=== PATIENT | female | born 1970 | race Caucasian/White ===

== ENCOUNTER 2016-08-27 15:12 | Emergency (ER) | payer OTHER ==
--- NOTE | ~2016-08-27 | CR63 ---
[facility] A Service of [facility] & [facility] RADIOLOGY TEXT RESULTS PATIENT: ENRIQUE BALLARD LOCATION: SED : 66 UNIT #: [id number] AGE: [address]: Tony Jones MD SEX: F ORDER DR: [id number] [place] [id number] E MR#: [id number] Acc #: [id number] NAME: ENRIQUE BALLARD : 1970 SEX: F STUDY DATE/TIME: 08/27/2016 15:07 UNIT: SED ROOM: STUDY DESCRIPTION: CR Chest 2 View Attending Physician: Tony Jones M.D. Ordering Physician: Tony Jones M.D. Primary Care Physician: [facility] MEDICAL IMAGING REPORT This report is preliminary unless electronic signature is present. EXAM PA and lateral chest 08/27/2016 HISTORY Left rib pain starting 4 days ago. FINDINGS Heart size is within normal limits. Patient does have background changes of COPD. No pneumothorax or pleural effusion is seen. Patient has some scarring versus atelectasis at the lung bases bilaterally right greater than left. No rib fractures are identified. IMPRESSION Background changes of COPD. Patient is noted to have some bibasilar scarring versus atelectasis. No rib fractures are seen. Dictated by... Kala Allen M.D. THIS IS AN ELECTRONICALLY VERIFIED REPORT Kala Allen M.D. at 08/28/2016 5:27 PM GABY/yoshi TD: 08/27/2016 18:20 JOB #: [id number] MEDICAL IMAGING REPORT
[~2016-08-27 15:12] MED LIST: FLEXERIL10 MG PO; IBUPROFEN800 MG PO; NO MEDICATIONS; SUBOXONE 8 MG-1 EAC1 SL; VICODIN 5/1 TAB 5/50 PO
== END 2016-08-27 16:42 | disposition home or self-care (01) ==
LOC: SED 15:12
DX: S20.212A Contusion of left front wall of thorax, initial encounter (principal); Z90.710 Acquired absence of both cervix and uterus; Z88.5 Allergy status to narcotic agent; X50.1XXA Overexertion from prolonged static or awkward postures, initial encounter; Y92.812 Truck as the place of occurrence of the external cause
CPT/HCPCS: 71020; 99283

== ENCOUNTER 2016-10-12 21:50 | Emergency (ER) | payer OTHER ==
--- NOTE | ~2016-10-12 | CR2 ---
[facility] A Service of [facility] RADIOLOGY TEXT RESULTS PATIENT: ENRIQUE BALLARD LOCATION: SED : 66 UNIT #: [id number] AGE: [address]: Daphne Jansen SEX: F ORDER DR: [id number] [address] [address] [id number] E MR#: [id number] Acc #: [id number] NAME: ENRIQUE BALLARD : 1970 SEX: F STUDY DATE/TIME: 10/12/2016 22:10 UNIT: SED ROOM: STUDY DESCRIPTION: CR Abdomen Acute Series Attending Physician: Daphne Jansen Pa-C Ordering Physician: Daphne Jansen Pa-C Primary Care Physician: Porfirio Buchanan M.D. MEDICAL IMAGING REPORT This report is preliminary unless electronic signature is present. EXAM Acute abdominal series 10/12/2016 HISTORY Abdominal pain. Question tapeworms. Son has tapeworm. Nausea. 4 days ago. Prior hysterectomy. FINDINGS AP radiograph of the chest is presented with AP supine and upright radiographs of the abdomen and pelvis. Comparison chest radiograph 08/27/2016. Stable thoracolumbar scoliosis. No acute-appearing bony abnormality. Heart and mediastinum normal in size and contour. The lungs are markedly hyperinflated suggesting underlying chronic airway disease. There are areas of linear scarring at the bilateral lung bases, unchanged. No evidence of acute pulmonary disease, pleural effusion or pneumothorax and no suspicious nodule. Bowel gas pattern shows moderate stool burden in colon but no pathologic colonic dilatation. No free air. No small bowel dilatation. Where visible, the solid organ contours are unremarkable. Dictated by... Steven Cisneros M.D. THIS IS AN ELECTRONICALLY VERIFIED REPORT Steven Cisneros M.D. at 10/13/2016 3:05 PM MELO/britney TD: 10/13/2016 02:35 JOB #: [id number] [facility] A Service of [facility] RADIOLOGY TEXT RESULTS PATIENT: ENRIQUE BALLARD [place] [facility] [place] [birth year] [place] #: [id number] AGE: [address]: Daphne Jansen SEX: F ORDER DR: MEDICAL IMAGING REPORT Page 1 of 1
== END 2016-10-12 23:10 | disposition home or self-care (01) ==
LOC: SED 21:50
DX: K59.00 Constipation, unspecified (principal); Z88.5 Allergy status to narcotic agent; F17.200 Nicotine dependence, unspecified, uncomplicated
CPT/HCPCS: 74022; 99283